=== PATIENT | female | born 1990 | race Caucasian/White ===

== ENCOUNTER 2022-06-20 14:43 | Emergency (ER) | payer MEDICAID, SELFPAY ==
[2022-06-20 14:53] VITALS: BP 128/82; PULSE 85; RESP 18; TEMP 37; O2SAT 99; BMI 43.4
--- NOTE | 2022-06-20 15:02 | ED_ITS ---
HPI - General Time Seen by Provider: 15:02 Date Seen: 06/20/22 Chief complaint: Vaginal Bleeding Stated complaint: 9 week , bleeding Time Seen by Provider: 06/20/22 14:55 Source: patient and RN notes reviewed Mode of arrival: ambulatory Limitations: no limitations History of Present Illness HPI Narrative: Patient is a 32-year-old female that is reportedly about 9 weeks coming in with spotting. She had some dark brown spotting in April. She does not have an ultrasound yet, is scheduled for July 01. She had 2 prior pregnancies, children are ages 15 and 11. She is last 3 days been having increasing spotting sometimes some clotting. She is still having nausea, still having breast tenderness. No cramping. She does feel when her bladder gets full a little left abdominal discomfort possibly but no baseline abdominal pain. She has a little irritated externally from wiping. She is seen by [facility] provider. MD Complaint: vaginal bleeding Vaginal bleeding: light and clots Patient : Yes Related Data : 3 Para: 2 Allergies Allergy/AdvReac Type Severity Reaction Status Date / Time No Known Drug Allergies Allergy Verified 06/20/22 14:52 Review of Systems Status of ROS: Reports: 6 or more systems reviewed and unremarkable except as noted in History and below PFSH PFSH Social History Smoking Status: Never smoker Do you use any of these nicotine containing products: None Second hand tobacco smoke exposure: No How often do you have a drink containing alcohol: never How often do you have six or more drinks on one occasion: Never AUDIT-C Alcohol total score: 0 Non-prescribed substance use: denies use service: No Exam Const: Vital Signs, click to edit/add: Vital Signs - 24 hr 06/20/22 14:53 Temperature 98.6 F Pulse Rate [Pulse Oximeter] 85 Respiratory Rate 18 Blood Pressure [Le ft Upper Arm] 128/82 Pulse Oximetry 99 Oxygen Delivery Me thod Room Air Documenting provider has reviewed patient's vital signs: yes Common normals: no apparent distress, oriented x3, no limitations, healthy appearing, alert and well nourished General appearance: cooperative, comfortable, well kempt and well developed HENMT: Common normals: normocephalic, head/scalp atraumatic and hearing grossly normal bilaterally Head and scalp: normocephalic and atraumatic Eye: Common normals: PERRL, EOMs intact bilaterally, conjunctivae normal and no scleral icterus Conjunctiva: conjunctiva(e) normal Pupil: PERRL Resp: Common normals: normal respiratory effort, no retractions, no use of accessory muscles and clear to auscultation bilaterally Auscultation: clear to auscultation bilaterally Cardio: Common normals: regular rate, regular rhythm, S1 normal heart sound, S2 normal heart sound, no gallops, no clicks and no murmurs Rate: regular rate Rhythm: regular rhythm Heart sounds: S1 normal and S2 normal GI: Common normals: Normal to inspection, nondistended, normoactive bowel sounds present, soft to palpation, non-tender and no hepatosplenomegaly Palpation: soft and no hepatosplenomegaly Neuro: Common normals: oriented x3 Sensorium/orientation: alert Psych: Appearance: well kempt Course Course Hospital Course: Will obtain pelvic ultrasound to establish anatomy, whether this is an IUP, could be subchorionic hemorrhage, possible miscarriage. Doubtful with her symptoms that this is ectopic . She was able to pull up her clinic records and I can see that she is A positive, negative antibody screen. We will obtain CBC, urinalysis, quantitative hCG. Reevaluation(s) Reevaluation #1: Have reviewed the low hCG level at 25.9, ultrasound not showing any . Reviewed with patient that this is indicative of miscarriage unfortunately. We did discuss how important it is to follow the hCG level though, ensure that it is resolving. I have asked that she follow up in clinic next week. Time: 16:53 Vital Signs Vital signs: Initial Vital Signs Temperature 98.6 F 06/20/22 14:53 Temperature Source Temporal Artery Scan 06/20/22 14:53 Pulse Rate 85 06/20/22 14:53 Pulse Rhythm Regular 06/20/22 14:53 Respiratory Rate 18 06/20/22 14:53 Blood Pressure 128/82 06/20/22 14:53 Blood Pressure Mean 97 06/20/22 14:53 Blood Pressure Position Supine 06/20/22 14:53 Pulse Oximetry 99 06/20/22 14:53 Oxygen Delivery Method Room Air 06/20/22 14:53 Vital Signs Temperature 98.6 F 06/20/22 14:53 Pulse Rate 85 06/20/22 14:53 Respiratory Rate 18 06/20/22 14:53 Blood Pressure 128/82 06/20/22 14:53 Pulse Oximetry 99 06/20/22 14:53 Oxygen Delivery Method Room Air 06/20/22 14:53 Temperature 98.6 F 06/20/22 14:53 Pulse Rate 85 06/20/22 14:53 Respiratory Rate 18 06/20/22 14:53 Blood Pressure 128/82 06/20/22 14:53 Pulse Oximetry 99 06/20/22 14:53 Oxygen Delivery Method Room Air 06/20/22 14:53 MDM - OB/Uterine Contractions Lab Data Attestation: I reviewed the patient's lab results. Labs: Lab Results 06/20/22 06/20/22 Range/Units 15:22 16:11 WBC 7.76 (4.50-11.00) K/uL RBC 5.18 (4.00-5.20) m/uL Hgb 14.1 (12.0-16.0) gm/dL Hct 43.0 (33.0-51.0) % MCV 83 (80-100) fL MCH 27 (26-34) pg MCHC 33 (32-36) gm/dL RDW Coeff of Heavenly 11.9 (11.5-15.5) % Plt Count 240 (140-440) K/uL Neut % (Auto) 66.8 (42.0-72.0) % Lymph % (Auto) 25.3 (20-44) % [place] % (Auto) 6.2 (0.0-11.0) % Eos % (Auto) 1.5 (0.0-7.0) % Baso % (Auto) 0.1 (0.0-3.0) % Neut # (Auto) 5.18 (1.7-7.0) K/uL Lymph # (Auto) 1.96 (0.90-2.90) K/uL [place] # (Auto) 0.50 (0.00-0.90) K/UL Eos # (Auto) 0.12 (0.00-0.50) K/uL Baso # (Auto) 0.01 (0.00-0.30) K/uL HCG, Quant 25.90 mIU/mL Urine Color Yellow (Yellow) Urine Appearance Clear (Clear) Urine pH 5.5 (5.0-8.5) Ur Specific [place] 1.010 (1.000-1.030) Urine Protein Negative (Negative) Urine Glucose (UA) Negative (Negative) Urine Ketones Negative (Negative) Urine Blood 2+ A (Negative) Urine Nitrite Negative (Negative) Urine Bilirubin Negative (Negative) Urine Urobilinogen 0.2 (0.2-1.0) Ur Leukocyte Esterase Negative (Negative) Urine RBC 0-2 (0-2) Urine WBC 0-2 (0-5) Ur Squamous Epith Cells None (None-Few) Urine Bacteria None (None) Imaging Data Ultrasound OB limited: Attestation: I have reviewed the pertinent imaging results. Radiologist's impression: Patient: CRAIG GUTIERREZ Facility:?[facility] Patient ID:?[id number] Site Patient ID:?[id number] Site :?[id number] Study:?US OB Pelvis -06/20/2022 4:12:46 PM Ordering Physician:?Lea Olivier Final Report: INDICATION: Spotting No comparison TECHNIQUE: Real-time gonzales-scale imaging of the pelvis was performed. FINDINGS: Endometrium measures 5 millimeters and appears thin. In the lower uterine segment there is a rounded hypoechoic area measuring 0.9 x 0.3 x 0.5 centimeters. Left ovary is normal measuring 1.7 x 2.5 x 1.7 cm normal blood flow to left ovary. Right ovary measures 1.7 x 2.7 x 1.5 centimeters probable corpus luteum cyst in right ovary. Measuring 1.1 x 1.9 centimeters. There is no adnexal mass or free fluid seen. IMPRESSION: 5 millimeter endometrial stripe. Lower uterine segment demonstrates a rounded hypoechoic area nonspecific measuring 0.9 x 0.3 x 0.5 centimeters. This could be a area of fluid/blood products. Gestational sac not excluded. A yolk sac, pole is not seen within this collection. Recommend close interval follow-up and correlation with HCG levels. Both ovaries are identified ,probable right ovarian corpus luteum cyst. No adnexal mass. No free fluid. Dictated by Tiffany Burton MD @ 06/20/2022 4:40:13 PM (Electronic Signature) Critical Care Time Critical Care Time Critical Care Time: No Discharge Plan Discharge Clinical Impression: Miscarriage Patient Disposition: Home, Self-Care Condition: Stable Instructions: Miscarriage (ED) Additional Instructions: The hormone hCG level was very low at 25.9. This needs to be rechecked next week in clinic. You will likely continue to have some spotting and bleeding, could be even increase to be more like a heavy menstrual flow. If bleeding is significant to the point making you symptomatic like dizziness/lightheadedness, increased heart rate, etc., need to be re-evaluated. Please make your clinic appointment for next week otherwise. Activity Level: Activity as Tolerated Discharge Diet: Regular Follow Up/Referrals: Harry Ang MD [Primary Care Provider] - Stand Alone Forms: Time Warden Info Instructions
--- NOTE | 2022-06-20 15:08 | CRLHL7_ITS ---
For Patients: As a result of the Century Cures Act, medical imaging exams and procedure reports are released immediately into your electronic medical record. You may view this report before your referring provider. If you have questions, please contact your health care provider. INDICATION: Spotting No comparison TECHNIQUE: Real-time gonzales-scale imaging of the pelvis was performed. FINDINGS: Endometrium measures 5 millimeters and appears thin. In the lower uterine segment there is a rounded hypoechoic area measuring 0.9 x 0.3 x 0.5 centimeters. Left ovary is normal measuring 1.7 x 2.5 x 1.7 cm normal blood flow to left ovary. Right ovary measures 1.7 x 2.7 x 1.5 centimeters probable corpus luteum cyst in right ovary. Measuring 1.1 x 1.9 centimeters. There is no adnexal mass or free fluid seen. IMPRESSION: 5 millimeter endometrial stripe. Lower uterine segment demonstrates a rounded hypoechoic area nonspecific measuring 0.9 x 0.3 x 0.5 centimeters. This could be a area of fluid/blood products. Gestational sac not excluded. A yolk sac, pole is not seen within this collection. Recommend close interval follow-up and correlation with HCG levels. Both ovaries are identified ,probable right ovarian corpus luteum cyst. No adnexal mass. No free fluid. Dictated by Tiffany Burton MD @ 06/20/2022 4:40:13 PM (Electronically Signed)
[2022-06-20 15:45] LABS: Appearance Urine Clear (Clear); Bilirubin Urine Negative (Negative); Blood Urine 2+ (Negative); Color Urine Yellow (Yellow); Glucose Urine Negative (Negative); Ketones Urine Negative (Negative); Leukocyte Esterase Urine Negative (Negative); Nitrite Urine Negative (Negative); Protein Urine Negative (Negative); Urobilinogen Urine 0.2 (0.2-1.0); pH Urine 5.5 (5.0-8.5)
[2022-06-20 16:06] LABS: RBC Urine 0-2 (0-2); WBC Urine 0-2 (0-5)
[2022-06-20 16:16] LABS: Basophils Absolute Auto 0.01 K/uL (0.00-0.30); Basophils Percent Auto 0.1 % (0.0-3.0); Eosinophils Absolute Auto 0.12 K/uL (0.00-0.50); Eosinophils Percent Auto 1.5 % (0.0-7.0); Hemoglobin* 14.1 gm/dL (12.0-16.0); Immature Granulocytes Abs Auto 0.01 K/uL (0.00-0.30); Immature Granulocytes Pct Auto 0.1 %; Lymphocytes Absolute Auto 1.96 K/uL (0.90-2.90); Lymphocytes Percent Auto 25.3 % (20-44); Mean Corpuscular HGB Conc 33 gm/dL (32-36); Mean Corpuscular Hemoglobin 27 pg (26-34); Mean Corpuscular Volume 83 fL (80-100); Monocytes Percent Auto 6.2 % (0.0-11.0); Neutrophils Absolute Auto 5.18 K/uL (1.7-7.0); Neutrophils Percent Auto 66.8 % (42.0-72.0); Platelet Count* 240 K/uL (140-440); RDW Coefficient of Variation % 11.9 % (11.5-15.5); Red Blood Count 5.18 m/uL (4.00-5.20); White Blood Count* 7.76 K/uL (4.50-11.00)
[2022-06-20 16:21] LABS: Slide Review Reflex No
== END 2022-06-20 17:08 | disposition home or self-care (01) ==
PROVIDERS: Emergency Provider Family Medicine; PCP Family Medicine
DX: O03.9 Complete or unspecified spontaneous abortion without complication (principal)
CPT/HCPCS: 36415; 76815; 76817; 81001; 84702; 85025; 99283; 99284

== ENCOUNTER 2023-06-30 05:08 | Inpatient (IN) | payer MEDICAID, SELFPAY ==
[2023-06-30] VITALS (32 sets, daily range): BP systolic 98–130; BP diastolic 57–78; PULSE 76–107; RESP 16–18; TEMP 36.6–36.9; O2SAT 94–98; BMI 51.9
--- OUTSIDE RECORDS SUMMARY | 2023-06-30 05:11 | XMS_ITS | Clinical Summary ---
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 Active albuterol (PROVENTIL) 0.083 % neb solutionIndication s:Asthma, unspecified asthma severity, unspecified whether complicated, unspecified whether persistent Inhale 3 mL (2.5 mg) via a nebulizer every 4 hours if needed for Wheezing. 75 mL 5 11/27/2022 Active fluticasone (50 mcg per actuation) nasal solution (FLONASE)Indicatio ns:Environmental allergies Inhale 2 Sprays to both nostrils once daily. 16 g 11 11/27/2022 Active aspirin (ECOTRIN) 81 mg enteric coated tabletIndications: Obesity affecting in first trimester, unspecified obesity type Take 1 Tablet (81 mg) by mouth once daily with a meal. 0 12/25/2022 Active Breast Pump PurchaseIndication s:Care and examination of lactating mother Electric breast pump for home use. Gestational age at delivery: 39 weeks. Reason for need: return to work. Length of need: 99 months (lifetime use) 1 Each 03/18/2023 Active polydextrose 1.5 gram chew Chew by mouth. Active Abdominal BinderIndications: care and examination band For home use. 1 Each 05/03/2023 Active Graduated Compression StockingsIndicatio ns:Swelling of lower extremity during in third trimester For personal use. Length: calf Strength: 20-30 mmHg 2 Packet 05/13/2023 Active albuterol HFA (Ventolin HFA) 90 mcg/actuation inhalerIndications :Mild intermittent asthma without complication Inhale 2 Puffs by mouth every 4 hours if needed for Shortness Of Breath. 36 g 5 06/09/2023 Active albuterol HFA (Ventolin HFA) 90 mcg/actuation inhalerIndications :Mild intermittent asthma without complication Inhale 2 Puffs by mouth every 4 hours if needed for Shortness Of Breath. 18 g 04/29/2023 4 Discontinue d(Reorder (E-cancel not sent)) Active Problems Problem Noted Date Diagnosed Date Advanced maternal age in multigravida, second tr imester 02/25/2023 Maternal morbid obesity in second trimester, ant epartum 02/25/2023 MPP, Supervision of high-risk 01/26/20 Overview: Maru Demetris Escalante : 1990 [facility] ULTRASOUND/TESTING PATIENT [facility] CONSULT ON Support person name: [place]: No ULTRASOUND TYPE: L2 REASON FOR VISIT: AMA at delivery, BMI NEXT VISIT ALERTS: Final BRITT by Early Ultrasound LMP Date: Patient's last menstrual period was 10/08/2022. BRITT: 07/15/23 Early US: Date: 12/09/22 GA: 10w11d BRITT: 07/06/23 PrePregnancy Weight: 240 Height: 5ft 6.5in BMI: 38 PLANS & FUTURE APPOINTMENTS: ULTRASOUND/GROWTH PLAN: - Through: - Growth: Next TESTING PLAN: - Testing: Through DELIVERY PLAN: - Scheduled delivery: - Preferred delivery location: PRIMARY DIAGNOSIS: 32 y.o. Estimated Date of Delivery: 07/06/23 MATERNAL History of C/S x 2 (2007, 2011) AMA (35 at delivery) BMI 38 Hx hypothyroid PREVIOUS ULTRASOUNDS: 12/09/22 10w1d BRITT 07/06/2023. (PCP) ECHO: REFERRING PHYSICIAN/PHONE/LAST UPDATE: Courtney Starr MD, [facility] MD approves scheduling of recommended ultrasounds/testing: Yes SPECIALISTS/CONSULTS: Include: Specialty MD Clinic Name Phone# [place] and ADDED TO PATIENT CARE TEAM GENETICS: Declines/Not Done CARE COORDINATION: PERTINENT LABS: Labs reviewed? Yes Normal? Yes Blood type: A Rh Positive Antibody screen: Negative Non-[facility] labs need to be entered in EPIC? No 11/27/22 TSH 2.84 PERTINENT MEDS: bASA PROCEDURES: IF FGR <10% or EFW <2000 grams: Add FGRPCOM PLAN OF CARE: Original and updated POC #4 12/15/2022 Overview: Estimated Date of Delivery: 07/06/2023 based on 10w US - not consistent with LMP Patient's last menstrual period was 10/08/2022. GBS- Vaginal/Rectal OB Strep B PCR Date Value Ref Range Status 06/09/2023 Negative Final 28wk labs: GLUC TONIA,FAST (GEST) Date Value Ref Range Status 03/31/2023 87 65 - 95 mg/dL Final GLUC TONIA,1HR (GEST) Date Value Ref Range Status 03/31/2023 138 65 - 180 mg/dL Final GLUC TONIA,2HR (GEST) Date Value Ref Range Status 03/31/2023 102 65 - 155 mg/dL Final GLUC TONIA,3HR (GEST) Date Value Ref Range Status 03/31/2023 94 65 - 140 mg/dL Final Last Tdap- 04/15/23 Last Flu vaccine- 11/27/22 OB Labs: ABORH Date Value Ref Range Status 11/27/2022 A Rh Positive Final ANTIBODY SCREEN Date Value Ref Range Status 11/27/2022 Negative Negative Final HEMOGLOBIN Date Value Ref Range Status 11/27/2022 12.6 12.0 - 16.0 g/dL Final PLATELET COUNT Date Value Ref Range Status 11/27/2022 215 140 - 440 thou/cu mm Final TREPONEMA PALLIDUM Date Value Ref Range Status 11/27/2022 Non-Reactive Non-Reactive Final RUBELLA IGG ANTIBODY Date Value Ref Range Status 11/27/2022 9.97 >=1.00 Index Final INTERPRETATION Date Value Ref Range Status 11/27/2022 Positive Final Comment: Presence of detectable IgG antibodies. A positive result generally indicates exposure to the virus or previous vaccination, but is not an indication of active infection or stage of disease. HBSAG Date Value Ref Range Status 11/27/2022 Nonreactive Nonreactive Final Hep B Surf Ag Scr Date Value Ref Range Status 06/12/2022 Negative Negative Final HCV Ab Date Value Ref Range Status 06/12/2022 Non Reactive Non Reactive Final HCV Neg Interp Date Value Ref Range Status 06/12/2022 Comment Final Comment: Not infected with HCV unless early or acute infection is suspected (which may be delayed in an immunocompromised individual), or other evidence exists to indicate HCV infection. CHLAMYDIA PROBE Date Value Ref Range Status 11/27/2022 Negative Final N GONORRHOEAE PROBE Date Value Ref Range Status 11/27/2022 Negative Final HIV-1/HIV-2 SCREEN Date Value Ref Range Status 11/27/2022 Nonreactive Nonreactive Final No Known Allergies OB History Para Term AB Living 4 2 2 0 1 2 SAB IAB Ectopic Multiple Live Births 1 0 0 0 2 # Outcome Date GA Lbr Gibran/2nd Weight Sex Delivery Anes PTL Lv 4 Current 3 SAB 06/13/22 F SPONTANEOUS Comments: System Generated. Please review and update details. 2 Term 04/28/11 37w0d F JOSE Name: Aleisha Iraheta Term 05/18/07 40w3d 10:00 3.03 kg (6 lb 11 oz) M JOSE Comments: emergency Name: Tommy Past Medical History: . Date Allergic rhinitis, cause unspecified 05/04/2006 animal dander pollens, dust & mold CTS (carpal tunnel syndrome) Depression Hypothyroidism 04/22/2010 Other acne 05/04/2006 Unspecified asthma(493.90) 05/04/2006 Unspecified sinusitis (chronic) Varicella In childhood Varicose vein Vitamin D deficiency 04/22/2010 Past Surgical History: . Laterality Date ARTHROSCOPY Right 2005 Torn meniscus SECTION 2007 2011 CO UNLISTED PROCEDURE ACCESSORY SINUSES 2003 2009 TONSILLECTOMY 05/27/12 TYMPANOSTOMY #4 Problems (from 11/26/22 to present) No problems associated with this episode. Gisela Carty RN ....12/15/2022 2:22 PM Pap smear for cervical cancer screening 07/31/19 Overview: 05/2022 NIL/HPV negative. Plan: Pap/HPV due 05/2027 Vitamin D deficiency 04/22/2010 Hypothyroidism 04/22/2010 Allergic rhinitis, cause unspecified 05/04/2006 Overview: animal dander pollens, dust & mold Unspecified asthma(493.90) 05/04/2006 Other acne 05/04/2006 Estimated Date of Delivery Comme nts Yes 07/06/2023 Based on Ultraso und Resolved Problems Problem Noted Date Diagnosed Date Resolved Date #3 06/12/2022 12/15/2022 Overview: SAB May 2022 OB History Para Term AB Living 3 2 2 0 0 2 SAB IAB Ectopic Multiple Live Births 0 0 0 0 2 # Outcome Date GA Lbr Gibran/2nd Weight Sex Delivery Anes PTL Lv 3 Current 2 Term 04/28/11 F JOSE Comments: System Generated. Please review and update details. 1 Term 05/13/07 40w3d 10:00 3.03 kg (6 lb 11 oz) M JOSE Comments: emergency Name: Tommy Past Medical History: . Date Allergic rhinitis, cause unspecified 05/04/2006 animal dander pollens, dust & mold CTS (carpal tunnel syndrome) Depression Hypothyroidism 04/22/2010 Other acne 05/04/2006 Unspecified asthma(493.90) 05/04/2006 Unspecified sinusitis (chronic) Varicella In childhood Varicose vein Vitamin D deficiency 04/22/2010 Past Surgical History: . Laterality Date ARTHROSCOPY Right 2005 Torn meniscus SECTION 2007 2011 CO UNLISTED PROCEDURE ACCESSORY SINUSES 2003 2009 TONSILLECTOMY 05/27/12 TYMPANOSTOMY No data on file. Problems (from 06/12/22 to present) No problems associated with this episode. Gisela Carty RN ....06/12/2022 3:41 PM History of section 01/19/2011 05/10/2013 Supervision of other normal 11/21/2010 05/10/2013 Morning sickness 10/24/2010 05/10/2013 Unspecified sinusitis (chronic) 05/10/2013 Encounters Date Type Department Care Team Description 06/23/2023 9:15 AM CDT OB Encounter [facility] [address] [place] [address] Courtney Starr MD Care (38w 1d) 06/23/2023 Travel 06/16/2023 8:50 AM CDT OB Encounter [facility] [address] [place] [address] Courtney Starr MD Care (37w 1d/Increased pelvic pain and pressure along with jayjay crockett) 06/16/2023 Travel 06/09/2023 11:20 AM CDT OB Encounter [facility] [address] [facility] [address] Courtney Starr MD Care (36w 1d/) 06/09/2023 Refill [facility] [address] [place] [address] Courtney Starr MD Refill Request (Ventolin Hfa) 06/08/2023 10:30 AM CDT Ancillary Procedure [facility] [place] [address] 06/08/2023 Travel 06/02/2023 9:15 AM CDT OB Encounter [facility] [place] [address] Courtney Starr MD Care (35w 1d/Feet have been swelling pretty bad and hard time putting shoes. Increased Jayjay crockett and increased pressure and back pain.) 06/02/2023 Travel 05/13/2023 8:25 AM CDT OB Encounter [facility] [place] [address] Courtney Starr MD Care (32w 2d/Feeling a lot more pelvic pain after a day at work. Pain sometimes makes her feel nauseated.) 05/13/2023 Travel 04/30/2023 11:20 AM PASSENGER SERVICE AGENT OB Encounter [facility] [address] [place] [address] Courtney Starr MD Care (30wk 3d/) 04/30/2023 Travel 04/28/2023 Refill [facility] [address] [place] [address] Courtney Starr MD Refill Request 04/15/2023 8:25 AM PASSENGER SERVICE AGENT OB Encounter [facility] [address] [place] [address] Courtney Starr MD Care (28w 2d) 04/15/2023 Travel from Last 3 Months Immunizations Name Administration Dates Next Due AMB Influenza, IIV3 (Age >=3 years) Preserve Free (Flu Clinic Only) 12/06/2012 AMB Influenza, IIV3 (Age >=3 years)(Flu Clinic Only) 11/30/2011,12/15/2010,12/23/2007 AMB Influenza, IIV4 PF (=>6 mos Flulaval,Fluzone Fluarix)(Flu Clinic Only) 11/29/2018,12/14/2015,12/13/2013 COVID-19 Vaccine Spikevax (M oderna 50mcg/0.5mL) 12YO+ [id number] Formula PF 01/20/2023 DTaP 05/09/1993, 2,1988,1988,1988 HIB HbOC (HibTITER) 04/06/1991 Hepatitis B (Peds) 01/01/2000,08/01/1999, 000 Human Papilloma Virus Vaccine 06/29/2007, 007,05/05/2006 11/07/2006 Influenza, IIV3 (Age 6-35 mos) 12/06/2012,2010 Influenza, IIV3 (Age >=3 years) 11/30/19 12,11/27/2009,12/23/2007,2006,12/10/2005,12/16/2004,12/21/2003,1 04/17/2002 Influenza, IIV4 11/27/2022, 2,12/16/2020,2017,11/17/2016,12/14/2015,12/14/2014,1 Influenza, IIV4 (=>6mos) MDV 12/21/2019 MMR 07/01/1999,05/09/1993 Oral Polio Vaccine 05/09/1993, 2,1988,1988 Td (Age >=7 Years) 07/01/1999 Tdap 04/15/2023,12/03/2021,09/10/2009 Family History Medical History Relation Name Comments Other Brother 2 gallblader dise ase Diabetes Brother 3 Psychiatric illness Brother 4 Depressi on Asthma Daughter Diabetes Father Heart failure Father Hyperlipidemia Father Hypertension Father Hyperlipidemia Mother Hypertension Mother Psychiatric illness Mother Depressi on Asthma Sister 2 Psychiatric illness Sister 3 Depressi on Asthma Son Relation Name Status Comments Brother 1 Alive Brother 2 Brother 3 Brother 4 Daughter Father Alive Mother Alive Sister 1 Alive Sister 2 Sister 3 Son Social History Tobacco Use Types Packs/Day Years Used Date Smoking Tobacco: Never Smokeless Tobacco: Never Tobacco Cessation:Counseling Given: Yes Alcohol Use Standard Drinks/Week Comments No 0 (1 standard drink = 0.6 oz pur e alcohol) PHQ-2 Answer Date Recorded PHQ-2 TOTAL SCORE 2 06/25/2022 Social Connections Answer Date Recorded Frequency of Communication with Friends and Fami ly Not on file 07/09/2022 Financial Resource Strain Answer Date R ecorded Difficulty of Paying Living Expenses 3 07/08/2021 Difficulty of Paying Living Expenses Not on file 07/08/2021 Food Insecurity Answer Date Recorded Worried About Running Out of Food in the Last Ye ar 1 07/08/2021 Transportation Needs Answer Date Record ed Lack of Transportation (Medical) 1 07/08/2021 Housing Stability Answer Date Recorded Unable to Pay for Housing in the Last Year 1 07/08/2021 Estimated Date of Delivery Comme nts Yes 07/06/2023 Based on Ultraso und Sex and Gender Information Value Date Recorded Sex Assigned at Not on file Gender Identity Not on file Sexual Orientation Not on file Obstetrics History Para Term AB IAB SAB Ectopic Multiple Livin g Live Births 4 2 2 0 1 0 1 0 0 2 2 Date Outcome GA Total Labor Labor/2nd/3rd Weight Sex Delivery Anes PTL Jose A1 A5 Name Cl in 05/17 Term 40w 3d 10h 00m/ 3.03 kg (6 lb 11 oz) M Bindu ng Vaishali n Melan ie [facility] Delivery Location:[facility] Comments:emergency c- section 04/28 Term 37w 0d F Bindu ng Erendira a 06/13 SAB F SPONTANEO US Comments:System Genera lobito. Please review and update details. Current Summary Episode Dates Number of Fetuses Estimated Date of Delivery 11/26/2022 - Present (06/30/2023) 07/06/2023 (set by Gisela Carty RN on 12/24/2022 based on Ultrasound on 12/09/2022) Dating Summary Based On BRITT GA Diff Last Menstrual Period on 10/08/2022 07/15/2023 -1w2d Ultrasound on 12/09/2022 07/06/2023 Working GA:10w1d Vitals Pregravid Weight Height TWG (As of 06/30/2023) Pregrav id BMI 1.69 m (5' 6.54) Date GA Fund Present FHR Mvmt BP Weight Edema Alb Glu Ket Dil/ Eff/Sta 3 21w2d Inpatient data not displayed here. See encounter summary. Notes Progress Notes - OB Encounte r - 06/23/2023 - GA:38w1d 06/23/2023 - 38w1d - Courtney Starr MD SUBJECTIVE: Maru Escalante is a 33 y.o. female at 38+1 weeks. No concerns. Still having pelvic pain, but not as bad. Continues to have swelling in lower extremities, but again better since she is not working. Baby is active. Some BH contractions especially when baby is active in the evenings. See visit comments. OBJECTIVE: see OB vitals flow sheet ASSESSMENT : 38+1 weeks gestation AMA Maternal obesity Planned repeat PLAN: Labor signs and symptoms reviewed with patient including painful regular contractions or leaking fluid. Otherwise will plan to present for her next week. Courtney Starr MD .................... 06/23/2023 9:28 AM Progress Notes - OB Encounte r - 06/16/2023 - GA:37w1d 06/16/2023 - 37w1d - Courtney Starr MD SUBJECTIVE: Maru Escalante is a 33 y.o. female at 37+1 weeks. Having more BH contractions and pelvic pain/pressure. Having to take more breaks at work. See visit comments. OBJECTIVE: see OB vitals flow sheet ASSESSMENT : 37+1 weeks gestation AMA Maternal obesity PLAN: Labor signs and symptoms reviewed with patient including painful regular contractions or leaking fluid. RTC 1 weeks. Courtney Starr MD .................... 06/16/2023 9:12 AM Progress Notes - OB Encounte r - 06/09/2023 - GA:36w1d 06/09/2023 - 36w1d - Angie Taylor mj 06/09/2023 - 36w1d - Michelle Fuentes Faxed to [facility]. Michelle Fuentes .................... 06/10/2023 8:27 AM 06/09/2023 - 36w1d - Courtney Starr MD Images from the original note were not included. [facility] Preoperative Consultation Maru Escalante : 1990 Gender: female Date of Encounter: 06/09/2023 Nursing Notes: Deepa Robledo 06/09/2023 11:28 AM Sign at exiting of workspace Chief Complaint Patient presents with Care 36w 1d Additional visit information (chief complaint/health maintenance) shared by patient: Health Maintenance Due Topic Date Due Pneumococcal series for age 6-64 (1 of 2 - PCV) Never done Depression screening for age 12+ 06/26/2023 Health maintenance reviewed with patient Yes Patient presents for an in-person office visit: alone Communication Method: Patient is active on [employer] and has been instructed that results/communications will be made via [employer] If a phone call is needed, the preferred number is: Mobile May we leave a detailed message at this number? Yes Is patient in need of refills in the next 3 months? No BP 128/74 (Cuff Site: Right Arm, Position: Sitting, Cuff Size: Adult Large) Pulse 93 Wt 132.5 kg (292 lb 3.2 oz) LMP 10/08/2022 SpO2 98% BMI 46.41 kg/m?? Deepa Montoya, [facility] 06/09/2023 11:28 AM History of Present Illness Maru Escalante is a 33 y.o. at 36+1 week here for routine OB visit as well as preop for planned repeat on 06/30/2023. She has continued swelling in lower extremities, right a little worse than left. No redness or pain. Swelling is better in AM, worse as the day goes on. She is using her albuterol regularly, about every 4 hours when she is working since she is up walking. On days she doesn't work, she doesn't use it at all. Review of Systems A comprehensive review of systems was negative except for items noted in HPI. Patient Active Problem List Diagnosis Code Allergic rhinitis, cause unspecified J30.9 Unspecified asthma(493.90) J45.909 Other acne L70.8 Vitamin D deficiency E55.9 Hypothyroidism E03.9 Pap smear for cervical cancer screening Z12.4 #4 Z34.90 [facility], Supervision of high-risk O09.90 Advanced maternal age in multigravida, second trimester O09.522 Maternal morbid obesity in second trimester, antepartum (HC) O99.212, E66.01 Current Outpatient Medications Medication Sig Abdominal Binder band For home use. albuterol (PROVENTIL) 0.083 % neb solution Inhale 3 mL (2.5 mg) via a nebulizer every 4 hours if needed for Wheezing. albuterol HFA (Ventolin HFA) 90 mcg/actuation inhaler Inhale 2 Puffs by mouth every 4 hours if needed for Shortness Of Breath. aspirin (ECOTRIN) 81 mg enteric coated tablet Take 1 Tablet (81 mg) by mouth once daily with a meal. Breast Pump Purchase Electric breast pump for home use. Gestational age at delivery: 39 weeks. Reason for need: return to work. Length of need: 99 months (lifetime use) fluticasone (50 mcg per actuation) nasal solution (FLONASE) Inhale 2 Sprays to both nostrils once daily. Graduated Compression Stockings For personal use. Length: calf Strength: 20-30 mmHg polydextrose 1.5 gram chew Chew by mouth. no115/iron/folic acid ( 19 ORAL) Take by mouth. No current facility-administered medications for this visit. Medications have been reviewed by me and are current to the best of my knowledge and ability. No Known Allergies Past Surgical History: . Laterality Date ARTHROSCOPY Right 2005 Torn meniscus SECTION 2007 2011 CO UNLISTED PROCEDURE ACCESSORY SINUSES 2003 2009 TONSILLECTOMY 05/27/12 TYMPANOSTOMY Social History Tobacco Use Smoking status: Never Smokeless tobacco: Never Vaping Use Vaping status: Never Used Substance Use Topics Alcohol use: No Drug use: No Family History Problem Relation Age of Onset Hypertension Mother Hyperlipidemia Mother Psychiatric illness Mother Depression Hypertension Father Hyperlipidemia Father Diabetes Father Heart failure Father Asthma Sister Psychiatric illness Sister Depression Other Brother gallblader disease Diabetes Brother Psychiatric illness Brother Depression Asthma Daughter Asthma Son PAST DIFFICULTY WITH ANESTHESIA: None Physical Exam BP 128/74 (Cuff Site: Right Arm, Position: Sitting, Cuff Size: Adult Large) Pulse 93 Wt 132.5 kg (292 lb 3.2 oz) LMP 10/08/2022 SpO2 98% BMI 46.41 kg/m?? Body mass index is 46.41 kg/m??. General Appearance: Pleasant, alert, appropriate appearance for age. No acute distress Eye Exam: Normal external eye, conjunctiva, lids, cornea. STEPHAN. OroPharynx Exam: Edentulate. Normal buccal mucosa. Normal pharynx. Neck Exam: Supple, no masses or nodes. Chest/Respiratory Exam: Normal chest wall and respirations. Clear to auscultation. Cardiovascular Exam: Regular rate and rhythm. S1, S2, no murmur, click, gallop, or rubs. Gastrointestinal Exam: Gravid, appropriate for GA. Neurologic Exam: Nonfocal; symmetric DTRs, normal gross motor movement, tone, and coordination. No tremor. Psychiatric Exam: Alert and oriented, appropriate affect. Assessment / Plan The Pre-Op Tool Recommendations Low Risk Procedure Cardiac History No history of coronary artery disease COVID-19 COVID-19 > 7 weeks ago, now asymptomatic: proceed with surgery as planned. Labs No routine labs indicated EKG Not indicated Stress Testing Not indicated * Testing recommendations are intended to assist, but not direct, clinical decisions. Take your other medications as usual prior to the procedure Hold vitamins and/or supplements for 1 week prior to the procedure Okay to take Acetaminophen (Tylenol) up until the procedure * Medication recommendations are not intended to be exhaustive; they are limited to common medications that are potentially dangerous if incorrectly managed Labs * Data supports elimination of ? routine? laboratory testing in favor of focused, ? indicated? testing based on medical co-morbidities. A 2009 study randomized 1061 patients undergoing ambulatory, non-cataract surgery to routine or to indicated testing. Perioperative adverse events were similar (Anesthesia & Analgesia 2009;108:467- 75; Anesthesiol. Clin. 2016 Mar;34(1):43-58). EKG * The ACC/AHA recommends against obtaining routine EKGs in patients undergoing low risk surgeries, a class IIa recommendation (JACC. 2014;64(21);e1-76). Antiplatelet Therapy * In the 2014 POISE-2 trial, continuation of aspirin in high cardiovascular risk patients undergoing non-cardiac surgery increased the risk for major bleeding without reducing the rate of , myocardial infarction, or stroke. In most circumstances our experts recommend a 7 day aspirin hold in patients without coronary stents. Continuation of aspirin may be reasonable in patients with high risk coronary artery disease or cerebrovascular disease who are not undergoing high bleeding risk procedures (NEJM 2014;370:1494-503; GERSON 2015; Clin Med 2016; 16: 535-40; Anest Analg 2020; 131: 111-23). Session ID: [id number] Endnotes and bibliography available upon request: [email or web address] Labs: GBS done today. ECG: no ICD-10-CM 1. Encounter for supervision of other normal in third trimester Z34.83 VAGINAL/RECTAL OB STREP PCR 2. Multigravida of advanced maternal age in third trimester O09.523 3. Obesity affecting in first trimester, unspecified obesity type O99.211 4. Preop examination Z01.818 Patient is cleared for planned procedure. Electronically Signed by: Courtney Starr MD 06/09/2023 Progress Notes - OB Encounte r - 06/02/2023 - GA:35w1d 06/02/2023 - 35w1d - Courtney Starr MD SUBJECTIVE: Maru Escalante is a 33 y.o. female at 35+1 weeks. Struggling more with swelling in the feet. She is wearing compression stockings, but those are only modestly helpful. They get better overnight or with elevation, but then worsen the longer she's on her feet. Having some BH contractions. See visit comments. OBJECTIVE: see OB vitals flow sheet ASSESSMENT : 35+1 weeks gestation Maternal obesity AMA PLAN: labor signs and symptoms reviewed with patient including pain, cramping, bleeding or leaking fluid. RTC 1 weeks with preop and GBS. Anesthesia consult placed. Courtney Starr MD .................... 06/02/2023 9:24 AM Progress Notes - OB Encounte r - 05/13/2023 - GA:32w2d 05/13/2023 - 32w2d - Courtney Starr MD SUBJECTIVE: Maru Escalante is a 33 y.o. female at 32+2 weeks. She is struggling with nasal congestion, is using saline nasal spray and flonase. She is also using a humidifier overnight. No concerns. See visit comments. OBJECTIVE: see OB vitals flow sheet ASSESSMENT : 32+2 weeks gestation AMA Maternal obesity Viral URI PLAN: labor signs and symptoms reviewed with patient including pain, cramping, bleeding or leaking fluid. If symptoms are not improving, worsening over the next week will reach out, could consider antibiotics for sinusitis. RTC 2 weeks. Courtney Starr MD .................... 05/13/2023 8:36 AM Progress Notes - OB Encounte r - 04/30/2023 - GA:30w3d 04/30/2023 - 303d - Courtney Starr MD SUBJECTIVE: Maru Escalante is a 33 y.o. female at 30+3 weeks. Has noted more swelling in the lower extremities. Had noticed this the day after she had been at her daughter's dance competition. If she rests and elevates the feet, that helps. See visit comments. OBJECTIVE: see OB vitals flow sheet ASSESSMENT : 30+3 weeks gestation AMA Obesity Repeat PLAN: labor signs and symptoms reviewed with patient including pain, cramping, bleeding or leaking fluid. prescription for compression stockings provided. RTC 2 weeks. Courtney Starr MD .................... 04/30/2023 11:29 AM ENGER SERVICE AGENT Progress Notes - OB Encounte r - 04/15/2023 - GA:28w2d 04/15/2023 - 28w2d - Courtney Starr MD SUBJECTIVE: Maru Escalante is a 32 y.o. female at 28+2 weeks. No concerns other than hip pain. This is relieved with rest. Needs work restriction forms completed. See visit comments. OBJECTIVE: see OB vitals flow sheet ASSESSMENT : 28+2 weeks gestation Obesity, growth ultrasound at 36 weeks. Repeat LTCS planned, schedule 06/30/23 PLAN: labor signs and symptoms reviewed with patient including pain, cramping, bleeding or leaking fluid. TDaP today. RTC 2 weeks. Courtney Starr MD .................... 04/15/2023 8:59 AM ENGER SERVICE AGENT Progress Notes - OB Encounte r - 03/18/2023 - GA:24w2d 03/18/2023 - - Courtney Starr MD SUBJECTIVE: Maru Escalante is a 32 y.o. female at 24+2 weeks. If she is on her feet for prolonged periods, she gets hip pain. It improves with sitting/rest. Work has been accommodating, but she needs a letter for HR. Also is looking into an abdominal support band. No concerns. See visit comments. OBJECTIVE: see OB vitals flow sheet ASSESSMENT : 24+2 weeks gestation AMA Maternal obesity. Abnormal 1 hour GCT PLAN: labor signs and symptoms reviewed with patient including pain, cramping, bleeding or leaking fluid. Consult for placed. 3 hour GTT Letter for work accommodations. RTC 4 weeks with TDaP. Courtney Starr MD .................... 03/18/2023 11:43 AM ENGER SERVICE AGENT Progress Notes - Hospital En counter - 02/25/2023 - GA:21w2d 02/25/2023 - - Colleen Salazar MD Referred By: COURTNEY STARR MD Indications Code 21 weeks gestation of Z3A.21 AMA - 35 at delivery BMI > 35 Hx x2 Hx hypothyroid +bASA Declined serum screening IMPRESSION: Intrauterine at 21w 2d. presentation is Cephalic. EFW 450 grams, percentile: 66. Growth parameters and estimated weight are appropriate for gestational age. No major structural anomalies identified. No markers for aneuploidy identified. Normal Deepest Vertical Pocket of amniotic fluid: 4.92 cm. Placental location: Posterior. There is no evidence of placenta previa. The transabdominal cervical length is 3.5 cm. RECOMMENDATIONS: - Return to primary provider for continued care. - No alterations in the delivery plan are necessary. - No medication changes are indicated. - Consider growth ultrasound in 3rd trimester for AMA and BMI (can be done locally) - No surveillance otherwise indicated COMMENT: Present findings are reassuring. The patient was seen by the Perinatologist today. The previous ultrasound and the records were reviewed. The results of today's ultrasound were communicated to the patient. New government regulations related to the Century Cures act require that this note be released to the patient immediately, sometimes before the referring provider has been contacted. A portion of the information was presented verbally to the patient. The remainder is submitted as background for the referring provider, to be discussed as needed. Services Provided: Procedures Code DETAIL ANATOMY 24820.0 ENGER SERVICE AGENT Progress Notes - OB Encounte r - 02/17/2023 - GA:20w1d 02/17/2023 - - Courtney Starr MD SUBJECTIVE: Maru Escalante is a 32 y.o. female at 20+1 weeks. Exposed to covid last week, daughter tested positive. Maru tested negative on 02/12, but she has had a sore throat, nasal congestion and runny nose since. She has not retested. No concerns. See visit comments. OBJECTIVE: see OB vitals flow sheet ASSESSMENT : 20+1 weeks gestation Maternal obesity AMA at the time of delivery. Repeat PLAN: labor signs and symptoms reviewed with patient including pain, cramping, bleeding or leaking fluid. Level 2 ultrasound and echo next week. Discussed testing again for covid, although she is now out of treatment window for paxlovid and she is already on ASA therapy. RTC 4 weeks with diabetes, syphilis and hemoglobin screening. Courtney Starr MD .................... 02/17/2023 9:57 AM ENGER SERVICE AGENT Progress Notes - OB Encounte r - 01/20/2023 - GA:16w1d 01/20/2023 - 16w1d - Courtney Starr MD SUBJECTIVE: Maru Escalante is a 32 y.o. female at 16+1 weeks. No concerns. See visit comments. OBJECTIVE: see OB vitals flow sheet ASSESSMENT : 16+1 weeks gestation Maternal obesity AMA PLAN: Warning signs and symptoms reviewed with patient including pain, cramping, bleeding or leaking fluid. Perinatology consult/level 2 ultrasound ordered given maternal obesity and AMA at time of delivery. Covid booster given today. RTC 4 weeks. Courtney Starr MD .................... 01/20/2023 1:21 PM ENGER SERVICE AGENT Progress Notes - OB Encounte r - 12/25/2022 - GA:12w3d 12/25/2022 - 12w3d - Courtney Starr MD SUBJECTIVE: Mrau Escalante is a 32 y.o. female at 12+3 weeks. Nausea is still present, but improving. Is staying hydrating, able to keep down most foods. Patient declines genetic testing. No concerns. See visit comments. OBJECTIVE: see OB vitals flow sheet ASSESSMENT : 12+3 weeks gestation AMA Maternal obesity PLAN: Warning signs and symptoms reviewed with patient including pain, cramping, bleeding or leaking fluid. Start 81 mg ASA RTC 4 weeks. Courtney Starr MD .................... 12/25/2022 2:35 PM Progress Notes - OB Encounte r - 11/27/2022 - GA:8w3d 11/27/2022 - 8w3d - Courtney Starr MD Images from the original note were not included. FIRST OB VISIT HPI: Maru Escalante is a 32 y.o. female at 7w1d with capellan intrauterine here today for a initial OB exam. Estimated due date is Estimated Date of Delivery: 07/15/23 based on LMP, although her last period was only light bleeding for a day. . Nausea/Vomiting: yes Breast tenderness: yes Fatigue: yes Bleeding: no Taking vitamins: yes Options of sequential screen, cell-free DNA testing, amniocentesis were discussed. Patient is not sure if she is interested in pursuing testing. She will discuss with her AMA: yes, will be at the time of delivery Previous : yes OB History Para Term AB Living 4 2 2 0 1 2 SAB IAB Ectopic Multiple Live Births 1 0 0 0 2 # Outcome Date GA Lbr Gibran/2nd Weight Sex Delivery Anes PTL Lv 4 Current 3 SAB 06/13/22 F SPONTANEOUS Comments: System Generated. Please review and update details. 2 Term 04/28/11 37w0d F JOSE 1 Term 05/18/07 40w3d 10:00 3.03 kg (6 lb 11 oz) M JOSE Comments: emergency Past Medical History: . Date Allergic rhinitis, cause unspecified 05/04/2006 animal dander pollens, dust & mold CTS (carpal tunnel syndrome) Depression Hypothyroidism 04/22/2010 Other acne 05/04/2006 Unspecified asthma(493.90) 05/04/2006 Unspecified sinusitis (chronic) Varicella In childhood Varicose vein Vitamin D deficiency 04/22/2010 Past Surgical History: . Laterality Date ARTHROSCOPY Right 2005 Torn meniscus SECTION 2007 2011 CO UNLISTED PROCEDURE ACCESSORY SINUSES 2003 2009 TONSILLECTOMY 05/27/12 TYMPANOSTOMY Family History Problem Relation Age of Onset Hypertension Mother Hyperlipidemia Mother Psychiatric illness Mother Depression Hypertension Father Hyperlipidemia Father Diabetes Father Heart failure Father Asthma Sister Psychiatric illness Sister Depression Other Brother gallblader disease Diabetes Brother Psychiatric illness Brother Depression Asthma Daughter Asthma Son Social History Tobacco Use Smoking status: Never Smokeless tobacco: Never Substance Use Topics Alcohol use: No Current Outpatient Medications Medication Sig albuterol (PROVENTIL) 0.083 % neb solution Inhale 3 mL (2.5 mg) via a nebulizer every 4 hours if needed for Wheezing. albuterol HFA (Ventolin HFA) 90 mcg/actuation inhaler Inhale 2 Puffs by mouth every 4 hours if needed for Shortness Of Breath or Wheezing. fluticasone (50 mcg per actuation) nasal solution (FLONASE) Inhale 2 Sprays to both nostrils once daily. no115/iron/folic acid ( 19 ORAL) Take by mouth. No current facility-administered medications for this visit. Medications have been reviewed by me and are current to the best of my knowledge and ability. ALLERGIES Patient has no known allergies. MENTAL HEALTH HISTORY History of psychiatric diagnosis: None Current mental health provider: not applicable Currently taking any psychiatric medications? Not Applicable INFECTION HISTORY Current Drug Use: none Relevant infection history from OB Questionnaire: none REVIEW OF SYSTEMS Comprehensive ROS complete and negative other than noted in HPI and on OB Questionnaire. PHYSICAL EXAM BP 104/71 (Cuff Site: Left Arm, Position: Sitting, Cuff Size: Adult Large) Pulse 96 Ht 1.69 m (5' 6.54) Wt 109.1 kg (240 lb 9.6 oz) LMP 10/08/2022 SpO2 100% BMI 38.21 kg/m?? General Appearance: Alert, appropriate appearance for age. No acute distress. HEENT Exam: Grossly normal. Neck/Thyroid Exam: Supple, no masses, nodes or enlargement. Lungs: Clear to auscultation bilaterally. Breast Exam: Not indicated. Cardiovascular Exam: Regular rate and rhythm. S1, S2, no murmur. Abd: Soft, non-tender, no masses or organomegaly. + FHTs seen on bedside ultrasound Skin: no rashes or lesions. Lymphatics: no nodes palpable. Psychiatric Exam: Alert and oriented x 3, appropriate affect. Pelvic Exam: deferred ASSESSMENT/PLAN 32 y.o. at 7w1d with capellan intrauterine . ICD-10-CM 1. Encounter for supervision of other normal in first trimester Z34.81 ANTI HIV 1/2 ABORH TYPE ANTIBODY SCREEN HBSAG (HBS) TREPONEMA PALLIDUM RUBELLA IMMUNE STATUS UA W/ SEDIMENT EXAM REFLEXED PER CRITERIA URINE CULTURE GC CHLAMYDIA TRACH PROBE CBC AND DIFFERENTIAL TSH WITH REFLEX US OB 1ST TRI SINGLE TA AND TV 2. Need for influenza vaccination Z23 FluLaval Single Dose Syringe - FLU VACCINE => 6 MOS PRESERV FREE QUADRIVALENT IIV4 IM [] 3. Mild intermittent asthma without complication J45.20 albuterol HFA (Ventolin HFA) 90 mcg/actuation inhaler 4. Asthma, unspecified asthma severity, unspecified whether complicated, unspecified whether persistent J45.909 albuterol (PROVENTIL) 0.083 % neb solution 5. Environmental allergies Z91.09 fluticasone (50 mcg per actuation) nasal solution (FLONASE) Satisfactory exam. Demonstrates appropriate and health-seeking behaviors toward her . Verbalizes good understanding of care schedule and the importance of coming to each visit as scheduled. Start/continue vitamins. Reviewed labs. She was encouraged to call the office with any questions or concerns. Discussed with 2 prior c-sections, she will had another with this . Could consider ASA at next visit as she has a couple risk factors (will be AMA at time of delivery, obesity) Body mass index is 38.21 kg/m??. Diet and expected weight gain discussed with patient. DEPRESSION SCREEN 06/25/2022 12:00 PM PHQ Depression Screening Date of PHQ exam (doc flow) 06/25/2022 1. Lack of interest/pleasure 1 - Several days 2. Feeling down/depressed 1 - Several days PHQ-2 TOTAL SCORE 2 3. Trouble sleeping 2 - More than half the days 4. Decreased energy 2 - More than half the days 5. Appetite change 1 - Several days 6. Feelings of failure 1 - Several days 7. Trouble concentrating 2 - More than half the days 8. Activity level 0 - Not at all 9. Hurting yourself 0 - Not at all PHQ-9 TOTAL SCORE 10 PHQ-9 Severity Level moderate Functional Impairment somewhat difficult Intervention: last PHQ done when just past miscarriage. Reports mood is now normal. Courtney Starr MD Last Filed Vital Signs Vital Sign Reading Time Taken Comments Blood Pressure 120/75 06/23/2023 9:18 AM CDT Pulse 81 06/23/2023 9:18 AM CDT Temperature 36.6 ??C (97.8 ??F) 02/17/2023 9:50 AM CS T Respiratory Rate 14 12/01/2020 12:18 PM CDT Oxygen Saturation 99% 06/23/2023 9:18 AM CDT Inhaled Oxygen Concentration - - Weight 132.9 kg (293 lb) 06/23/2023 9:18 AM CDT Height 169 cm (5' 6.54) 11/27/2022 4:00 PM CDT Body Mass Index 46.53 11/27/2022 4:00 PM CDT Plan of Treatment Health Maintenance Due Date Last Done Comments Pneumococcal series for age 6-64 (1 of 2 - PCV) 1994 Depression screening for age 12+ 06/26/2023 06/25/2022, 04/05/2019, 03/12/2018, Additional history exists Influenza for age 9-49 10/31/2023 , 12/31/2021, 12/16/2020, Additional history exists BMI (ht and wt on same day) for age 18+ 11/28/2023 11/27/2022, 06/12/2022, 12/03/2021, Additional history exists Pap test for age 21-65 06/26/2027 , 06/25/2022, 11/10/2017, Additional history exists Tetanus booster 04/15/2033 04/15/2023, 06/2021, 09/10/2009, Additional history exists Hepatitis C screening for ag e 18-79 Completed 06/12/2022 HIV for age 15-65 Completed 11/27/2022, , 09/30/2010, Additional history exists COVID-19 vaccine series Completed 01/21/20, 07/18/2020, 06/20/2020 Tdap Completed 04/15/2023, 06/2021, 09/10/2009 Procedures Procedure Name Priority Date/Time Associated Diagnosis Comments VAGINAL/RECTAL OB STREP PCR Routine 06/09/2023 11:45 AM CDT Encounter for supervision of other normal in third trimester US OB FOLLOW UP ANY TRI SINGLE TA Routine 06/08/2023 10:59 AM CDT Encounter for supervision of other normal in third trimester Obesity affecting in first trimester, unspecified obesity type ANTI HIV 1/2 Routine 11/27/2022 5:03 PM CDT Encounter for supervision of other normal in first trimester HPV THIN PREP Routine 06/25/2022 12:13 PM CDT Screening for cervical cancer LC HCV ANTIBODY RFX TO QUANT PCR Routine 06/12/2022 3:55 PM CDT Encounter for supervision of other normal in first trimester from Last 3 Months or Most Recently Relevant to Health Maintenance Results * VAGINAL/RECTAL OB STREP PCR (06/09/2023 11:45 AM CDT) Vaginal/Rectal OB Strep B PCR Negative 06/11/2023 8:51 AM CDT [facility] Other (Vaginal/Rectal) Non-Blood / Unknown 06/09/2023 11:45 AM CDT 06/09/2023 12:11 PM CDT Courtney Starr MD MICROBIOLOGY [facility] [address] [place] [address], * US OB FOLLOW UP ANY TRI SINGLE TA (06/08/2023 10:59 AM CDT) Anatomical Region Laterality Modality , 2or 3 TRIMESTER Ultrasound 06/08/2023 2:11 PM CDT Impressions 06/08/2023 2:11 PM CDT Sonographic gestational age 37 weeks 5 days and sonographic due date 06/24/2023. Sonographic age 12 days ahead of the clinical age. Estimated weight 87th percentile. Abdominal circumference 93rd percentile. Dictated by Vazquez Rabago MD @ 06/08/2023 2:11:44 PM (Electronically Signed) Narrative 06/08/2023 2:11 PM CDT For Patients: ??As a result of the Cures Act, medical imaging exams and procedure reports are released immediately into your electronic medical record. ??You may view this report before your referring provider. ??If you have questions, please contact your health care provider. INDICATION: Third trimester scan, evaluate growth. COMPARISON: 02/25/2023 TECHNIQUE: Real time gonzales scale imaging of the fetus was performed. FINDINGS: Sonographic imaging demonstrates a single living intrauterine gestation. ??Fetus demonstrates a regular cardiac rate of 139 beats per minute. ??Fetus has a vertex position. The placenta lies left fundal without evidence of placenta previa. ??Amniotic fluid volume appears normal and there is a single deepest vertical pocket: 5.6 cm. The estimated weight is 3215gm which lies at the 87th %. ??On the prior OB ultrasound exam dated 02/25/2023 the estimated weight was at the 71st%. The biometric indices all lie within normal range. ??The HC/AC ratio measures 1.00 range (0.93-1.11). Procedure Note Vazquez Rabago MD - 06/08/2023 For Patients: As a result of the Cures Act, medical imagingexams and procedure reports are released immediately into your electronicmedical record. You may view this report before your referring provider.If you have questions, please contact your health care provider. INDICATION: Third trimester scan, evaluate growth. COMPARISON: 02/25/2023 TECHNIQUE: Real time gonzales scale imaging of the fetus was performed. FINDINGS: Sonographic imaging demonstrates a single living intrauterine gestation.Fetus demonstrates a regular cardiac rate of 139 beats per minute. Fetushas a vertex position. The placenta lies left fundal without evidence ofplacenta previa. Amniotic fluid volume appears normal and there is asingle deepest vertical pocket: 5.6 cm. The estimated weight [id number] which lies at the 87th %. On the prior OB ultrasound exam dated104/28/2022 the estimated weight was at the 71st%. The fetalbiometric indices all lie within normal range. The HC/AC ratio measures1.00 range (0.93- 1.11). IMPRESSION: Sonographic gestational age 37 weeks 5 days and sonographic due date06/24/2023. Sonographic age 12 days ahead of the clinical age. Estimated weight 87th percentile. Abdominal circumference 93rdpercentile. Dictated by Vazquez Rabago MD @ 06/08/2023 2:11:44 PM (Electronically Signed) Courtney Starr MD US * ANTI HIV 1/2 (11/27/2022 5:03 PM CDT) HIV-1/HIV-2 SCREEN Non-Reacti ve Non-Reacti ve 11/30/2022 1:50 PM CDT [facility] Comment:HIV-1 p24 and HIV-1/ HIV-2 Ab Not Detected. Blood BLOOD SPECIMEN / Unknown Venipuncture / Unknown 11/27/2022 5:03 PM CDT 11/27/2022 5:03 PM CDT Courtney Starr MD SEND OUTS Performing Organization Address [facility] Co de Phone Number [facility] [address] [place] [address], * HPV HIGH RISK (06/25/2022 12:13 PM CDT) TYPE 16 Negative Negative 06/30/2022 5:22 PM CDT [facility] TYPE 18 Negative Negative 06/30/2022 5:22 PM CDT [facility] OTHER HIGH RISK TYPES Negative Negative 06/30/2022 5:22 PM CDT [facility] Other (Cervical) Non-Blood / Unknown 06/25/2022 12:13 PM CDT 06/26/2022 2:43 PM CDT Narrative [facility] - 06/30/2022 5:22 PM CDT HPV types 16, 18, 31, 33, 35, 39, 45, 51, 52, 56, 58, 59, 66 and 68 DNA were undetectable or below the pre-set threshold. Methodology: Luis Isabella 4800 HPV Test Courtney Starr MD MICROBIOLOGY Performing Organization Address City/[facility]/ZIP Co de Phone Number [facility] [address] [place] [address], * LC HCV ANTIBODY RFX TO QUANT PCR (06/12/2022 3:55 PM CDT) HCV Ab Non Reactive Non Reactive 06/16/2022 2:07 AM CDT [facility]) Blood BLOOD SPECIMEN / Unknown Butterfly / Unknown 06/12/2022 3:55 PM CDT 06/12/2022 3:55 PM CDT Narrative [facility] ([facility]) - 06/16/2022 2:07 AM CDT Performed at: ??[address] ??[id number] Fruit Dumper: Alverto Brizuela MD, Phone: ??[phone] Courtney Starr MD LABORATORY [facility] ([facility]) [address] [place] [address] from Last 3 Months or Most Recently Relevant to Health Maintenance Advance Directives * Full Code (Latest Code Status on File) Date Activated Date Inactivated Comments 05/27/2012 7:47 AM 05/27/2012 7:51 AM Care Teams Farm Helper Relationship Specialty Start Date End Date Courtney Starr MD [facility] [id number] PCP - General Family Practice 06/22/22
[2023-06-30] MEDS: LACTATED RINGERS 1000 ML 1,000 ML 900 ML IV (06:10)
[2023-06-30 06:19] LABS: Hemoglobin* 11.9 gm/dL (12.0-16.0)
[2023-06-30] MEDS: LACTATED RINGERS 1000 ML 1,000 ML 100 ML IV (07:43)
[2023-06-30] MEDS: CEFAZOLIN 1 GM inj 3 GM IVP (07:43)
--- NOTE | 2023-06-30 07:53 | W.ANESCHARGE ---
Anesthesia Charges Start Date/Time Anesthesia Start Date: 06/30/23 Anesthesia Start Time: 07:22 Stop Date/Time Anesthesia Stop Date: 06/30/23 Anesthesia Stop Time: 09:31
[2023-06-30] MEDS: KETOROLAC 30 MG/ML inj IVP ×3 (09:00→21:01)
--- NOTE | 2023-06-30 09:03 | W.ANESCHARGE ---
Anesthesia Charges Start Date/Time Anesthesia Start Date: 06/30/23 Anesthesia Start Time: 07:22 Stop Date/Time Anesthesia Stop Date: 06/30/23 Anesthesia Stop Time: 09:31
--- NOTE | 2023-06-30 10:23 | W.PM.H&PU_ITS ---
History & Physical Update History & Physical Update H&P Reviewed and patient assessed: No changes noted H&P Updates: Delayed documentation due to patient care. Patient seen at 0700. Maru is a 33yo seen at 39 weeks for repeat . is complicated by AMA, asthma, GERD and class 3 obesity. She is an established patient of [facility]. Please see my consult note from 06/08/23 for complete details. Patient is feeling well today with no acute concerns. Denies regular/painful uterine contractions, vaginal bleeding or leaking of fluids. Endorses active movement. NST reactive with baseline 130bpm, moderate variability, two 15x15 accels noted. No decelerations. Fetus palpates vertex by amauri's. Placenta is left fundal. Pre-op labs reviewed. We reviewed plan to proceed with repeat delivery and proceed as indicated. Patient affirmed her desire to not have surgical sterilization, she does plan to have Nexplanon placed prior to dismissal. We reviewed the risk of surgery including bleeding, infection, damage to surrounding structures and [facility] complications of surgery/anesthesia including VTE, heart attack, stroke. All questions answered. Written consent was re-signed.
--- NOTE | 2023-06-30 10:26 | PM.OBPRCCS ---
Procedure Time Seen by Provider: 08:45 Date of procedure: 06/30/23 Pre-op diagnosis: Prior Delivery, 39 weeks gestation Post-op diagnosis: same Procedure Done: only Will [facility] bill your pro fee for this procedure?: Yes Blood Loss Measurement Type: QBL (328mL) Bakri Used: No IV fluids (mL): 1,000 Urine Output (mL): 75 Surgeon: Javan Lee MD Computer Networking Instructor Adjunct: Ciara Baez MD Anesthesia Type: Spinal Findings: Significant diastasis recti Adhesive disease between the bladder reflection to lower uterine segment and laterally to rectus abdominis muscles Thin omental adhesions to anterior abdominal wall Unremarkable uterus, bilateral fallopian tubes and ovaries Procedure Name: Repeat delivery, lysis of adhesions Procedure Description: Patient was taken to the operating room with IV running. She received 3g cefazolin in preoperative prophylaxis. Spinal anesthesia was administered. Odom catheter was inserted. Traxi retractor and tape was utilize to elevate the panniculus. She was prepped and draped in the usual sterile fashion. Anesthesia was tested and found to be adequate. A low-transverse skin incision was made with a scalpel and carried through to the underlying layer of fascia with the scalpel. The subcutaneous fat was dissected off the underlying fascia with Bovie and blunt dissection. The fascia was nicked in the midline with a scalpel, and this incision was extended laterally with scissors. The fascia was elevated superiorly, where the rectus muscles were noted to be widely in the midline consistent with diastasis recti. The muscle was dissected off the fascia with a combination of sharp and blunt dissection, where the peritoneum was entered. Thin adhesion between the omentum and anterior abdominal wall was noted, taken down with electrocautery. The bladder was noted to be advanced along the entire lower uterine segment, with adhesions laterally to the peritoneum and rectus abdominis muscles. The inferior fascia was elevated and underlying muscle was dissected off with a combination of sharp and blunt dissection. We then started to address the intraabdominal adhesions. Making care to avoid the bladder, adhesions between the lateral bladder margins, peritoneum and anterior abdominal wall were inspected and transected sharply after ensuring clear tissue planes. Superiorly, the peritoneum was widened laterally with Bovie cautery. With the bladder adhesions fully taken down, we subsequently utilized lateral tension to extend peritoneal opening. Brayan O retractor was inserted and tightened down, providing excellent visualization of the lower uterine segment. A bladder flap was created with a combination of sharp and blunt dissection. Low-transverse uterine incision was made with a scalpel. Incision was widened bluntly. The 's head was grasped through the hysterotomy in OT position and elevated to the hysterotomy. The remainder of the body delivered without incident with the help of fundal pressure. No nuchal cord was noted. Cord was clamped and cut after 30 seconds. was handed off to attending nurses. The placenta was delivered with gentle traction on the cord. The uterus was cleaned of all clots and debris with the dry lap pad. Inferior extension of the hysterotomy was noted, with the inferior margin noted to be above bladder reflection. Distal corner was grasped with ring forceps. Hysterotomy closure was started at the inferior extension, in a running, locking fashion with 0 vicryl. Once at the level of the hysterotomy, this stitch was tied. We then proceed with right to left hysterotomy closure in the usual running, locked fashion with 0 vicryl. A second layer of the same suture was used in imbricating fashion to obtain hemostasis. Care was made to reinforce the site where the extension met hysterotomy given tissue friability at this site, where an additional figure of eight suture was applied with 0 vicryl. Excellent uterine tone was noted. The adnexa were examined and noted to be normal in appearance. The cul-de-sac and gutters were cleansed with dampened laparotomy sponge, removing any further clots and debris. The Brayna O retractor was removed. The hysterotomy was reexamined, where small volume oozing was noted where a figure of eight suture with 0 vicryl was applied at the right hysterotomy margin. Excellent hemostasis was noted. Marina was applied across the hysterotomy. The rectus muscles were examined and found to be hemostatic. The fascia was reapproximated with looped 0 PDS in a running fashion. Subcutaneous fat was irrigated and Bovie used on oozing vessels. The subcutaneous fat was reapproximated with 2-0 vicryl suture in a continuous fashion in two layers due to tissue depth. The skin was closed with a subcuticular stitch of 3-0 monocryl. A silver dressing was applied. Patient tolerated procedure well was taken to recovery area in stable condition. Surgical debrief was completed. I additionally reviewed intraoperative findings with Maru and her . I noted significant adhesive disease that made surgery more technically challenging. She intends to utilize nexplanon for contraception. details: - Liveborn male fetus - weight: 3875g - APGARs were 8 and 8 at 1 and 5 minutes respectively Pathology: none sent Surgery Debrief Performed: Yes Condition: stable Disposition: floor total score - 1 minute: 8 total score - 5 minute: 8
--- NOTE | 2023-06-30 10:53 | P.NB_ITS ---
Nerve Block Nerve Block Time Seen by Provider: 09:22 Date Seen: 06/30/23 Type of block requested by surgeon for post-operative analgesia: TAP Side: bilateral Time out performed: Yes Verification of patient name: Yes Verification of date of : Yes Site marking: site marked Name of person performing procedure: Sixto Continuous monitoring Was continuous monitoring of O2 sat, B/P, youth nutritional monitor, recorded every 15 minutes?: Yes Procedure Checklist: sterile prep, needles and gloves Ultrasound guided. Images saved: Yes Medications given in 5ml increments after negative aspiration: Marcaine %: 0.25 mL: 30 Needle gauge: 20 and Exparel mL: 10 Patient tolerated procedure well: Yes Additional comments: Needle noted between internal oblique and transversus abdominus. Local spread visualized Block Charges Block Charge (with Pro Fee): TAP Bilateral Use of Ultrasound Machine for Block: Yes- US Guidance/pain block
[2023-06-30] MEDS: ACETAMINOPHEN 500 MG TABLET 1000 MG PO (18:49)
[2023-07-01] VITALS (12 sets, daily range): BP systolic 109–122; BP diastolic 66–78; PULSE 78–97; RESP 16–18; TEMP 36.6–36.7; O2SAT 96–99
[2023-07-01] MEDS: ACETAMINOPHEN 500 MG TABLET 1000 MG PO ×4 (00:19→23:18)
[2023-07-01] MEDS: ENOXAPARIN 40 MG/0.4 ML INJ SUBCUT ×2 (00:19→13:28)
[2023-07-01] MEDS: KETOROLAC 30 MG/ML inj IVP ×3 (03:40→15:24)
[2023-07-01 06:45] LABS: Hemoglobin* 11.1 gm/dL (12.0-16.0)
--- NOTE | 2023-07-01 09:00 | PM.OBPNVD1 ---
OB - PN:Subj Subjective Date Seen: 07/01/23 Narrative: Maru is a 33 y.o. who was admitted to [facility] for repeat c/s. ?She had an uncomplicated .?The patient feels well. ?The pain is well controlled with current medications. ?She has no new complaints. ?She is breast feeding and reports things are going well.? the patient has done well.? Vitals have been stable.? She has remained afebrile.? Has a good appetite, is tolerating a general diet. ?She is voiding without difficulty.? She is passing gas and has not had a bowel movement.? She is ambulating and denies any dizziness.? Has Small amount of rubra lochia. She desires nexplanon for prevention. OB - PN: Obj Exam Physical Exam: Vital signs: Temp Pulse Resp BP Pulse Ox O2 Del Method 98.1 F 79 18 122/78 99 Room Air 07/01/23 03:45 07/01/23 08:15 07/01/23 08:15 07/01/23 08:15 07/01/23 08:15 07/01/23 08:15 Narrative: GENERAL APPEARANCE:? normal affect, alert, no distress MOOD:? appropriate CHEST:? clear to auscultation HEART:? regular rate and rhythm ABDOMEN:? soft, non-tender the uterine fundus is at Umbilicus, Midline and is appropriate for the stage of recovery. LOCHIA: Scant EXTREMITIES:? normal and +1 edema INCISION: Dressing in place; clean, dry, and intact Urinary Catheter Management: Odom: Cath placed during this visit: yes, but has since been removed by the nurse Reason for continuing: decision to DC catheter Insertion date: 06/30/23 Insertion time: 07:45 Removal date: 06/30/23 Removal time: 16:45 OB - PN: Obj Data Labs Labs: Laboratory Results - last 24 hr 07/01/23 06:25 Hgb 11.1 L OB - PN: A/P Delivery Assessment and Plan (1) care and examination immediately after delivery: Status: Acute (2) Lactating mother: Status: Acute (3) Status post delivery: Status: Acute Plan day: 1 Plan: routine care Comments: Routine post-operative care. Lactating mother. May see if desired. Hgb 11.1. Anticipate discharge on 07/01 or 07/02.
[2023-07-01] MEDS: DOCUSATE SODIUM 100 MG CAPSULE PO ×2 (09:14→21:47)
[2023-07-01] MEDS: SIMETHICONE 80 MG TAB.CHEW PO (20:19)
[2023-07-01] MEDS: IBUPROFEN 600 MG TABLET PO (21:41)
[2023-07-02] MEDS: ENOXAPARIN 40 MG/0.4 ML INJ SUBCUT (00:10)
[2023-07-02] MEDS: IBUPROFEN 600 MG TABLET PO ×2 (03:45→09:28)
[2023-07-02] MEDS: DOCUSATE SODIUM 100 MG CAPSULE PO (08:19)
[2023-07-02] MEDS: ACETAMINOPHEN 500 MG TABLET 1000 MG PO (08:19)
--- NOTE | 2023-07-02 08:39 | P.DS_ITS ---
DS: Providers Provider Date Seen: 07/02/23 Date of admission: 06/30/23 05:08 Primary care physician: Radha Starr MD Admitting Clinician: Maria Fernanda Lee MD Attending Physician on discharge: Maria Fernanda Lee MD Date of Discharge: 07/02/23 DS: Diagnosis Discharge Diagnosis (1) Status post delivery: Status: Acute (2) Lactating mother: Status: Acute (3) Obesity: Status: Chronic Exam Narrative: Exam Narrative: GENERAL APPEARANCE:? normal affect, alert, no distress? MOOD:? appropriate? CHEST:? clear to auscultation and percussion? HEART:? regular rate and rhythm? ABDOMEN:? soft, non-tender the uterine fundus is U/2 and is appropriate for the stage of recovery.?Incision dressing is clean, dry and intact without drainage visualized. EXTREMITIES:? normal and no edema? Const: Vital Signs, click to edit/add: Vital Signs - 24 hr 07/01/23 15:50 07/01/23 23:10 Temperature 97.9 F 98.0 F Pulse Rate [Pulse Oximeter] 85 84 Respiratory Rate 16 16 Blood Pressure [Ri ght Arm] 109/66 115/74 Pulse Oximetry 96 Oxygen Delivery Me thod Room Air Documenting provider has reviewed patient's vital signs: yes OB - DS: Summary Hospital Course Hospital Course: The patient is a 33 year old G 4 P 3 at 39.0 weeks gestation that was admitted to the Center on 06/30/23 for repeat delivery. She had an uncomplicated delivery. She delivered a viable male . She is breast feeding and feels it is going well. the patient has done well. Her pain is well controlled with current medications.?She has not needed narcotic pain medication in the hospital but would like a small amount for concerns about an increase in pain after discharge. She has no new complaints.? Urinary output is adequate and she is voiding without difficulty.? Has a good appetite, is tolerating a general diet, is passing flatus, and has not had a bowel movement.? Has scant amount of rubra lochia.? She is ambulating well.?She is request Nexplanon insertion immediately. It will be placed after discharge as a clinic patient. Peripartum Data delivery method: Repeat Section Procedures: Procedures Operation Date: 05/01/24 07:15 Actual Procedure Side Surgeon p Repeat Section Maria Fernanda Lee MD complications: none [place] Gender: Male Infant Discharge Plan: Home Status at Discharge Functional status at discharge: independent ambulation Overall status at discharge: patient is progressing back to baseline Time Spent with Patient Time attestation: Total time spent providing and/or coordinating discharge services: Discharge Plan Discharge Disposition: Home, Self-Care Date of Admission: 06/30/23 05:08 Attending Provider on Discharge: Milvia Mera Primary Care Provider: Radha Starr Condition: Stable Anticipated Discharge Date/Time: 07/02/23 12:00 Discharge Medications: New docusate sodium 100 mg Capsule 100 mg PO BID Qty: 100 0RF Rx Instructions: Take 1-2 tablets daily as needed for constipation. ibuprofen 600 mg Tablet 600 mg PO Q6H PRN (Reason: Pain) Qty: 100 0RF oxycodone 5 mg Tablet 5 - 10 mg PO Q4H PRN (Reason: Pain) Qty: 7 0RF Continued albuterol sulfate [Ventolin HFA] 90 mcg/actuation HFA aerosol inhaler 2 puff inhalation Q4H fluticasone propionate 50 mcg/actuation spray,suspension 1 spray intranasal BID [id number] 3-fat com #1 27-1-300 mg capsule PO loratadine [Claritin] 10 mg tablet 10 mg PO QDAY Fiber Gummies 2 gram tablet,chewable PO Discontinued aspirin [Adult Low Dose Aspirin] 81 mg tablet,delayed release (DR/EC) 81 mg PO QDAY No Action Nexplanon 68 mg implant 68 mg subdermal ONCE Qty: 1 0RF Discharge Orders: Discharge Order (Routine); Ordered 07/02/23 Ordered By: Milvia Mera Patient Education: OB /Breast Feeding Additional Instructions: Discharge instructions were reviewed with the patient including signs and symptoms of infection and home going medications? ?? Activity restrictions:? Lifting Restrictions: 20 pounds for 6 weeks? No high-impact or core exercises for 6 weeks.?? No not submerge incision under water X 2 weeks?? Nothing vaginally for 6 weeks: no tampons or intercourse? Do not drive while taking narcotic pain medication(s)? Off Work or School for 8 weeks? ?? Symptoms to report to doctor:? -Bleeding that saturates more than one pad per hour? -Passing clots larger than the size of a golf ball? -Pain not relieved by prescribed medication? -Fever above 100.4 degrees Fahrenheit? -A foul vaginal odor? -Difficulty in emotions, mood and functions? -Thoughts of hurting yourself and/or ? -Painful, reddened area in your breast? -Any drainage, redness or tenderness in your IV/epidural site? -Severe headache that doesn't improve after taking medications? -Changes in vision, including temporary loss of vision, blurred vision, and/or light sensitivity? -Upper abdominal pain (usually under ribs on the right side)? -Decrease in urination or painful, frequent urinating? -Chest pain? -Shortness of breath? -Tenderness or pain with redness and/swelling in the calf(s) of your leg? Follow up visits:?? 1. 1 week visit:? incision check and dressing removal.? 2. 2-week visit: discuss infant feeding/care concerns, review control options and screen for anxiety/depression.? 3. 6-week visit for an annual exam.? ?? consultation services are available to all mothers and babies for the first year after delivery.? To make an appointment, please call [phone].? Follow Up Appointments: [facility] [Provider Group] Radha Starr MD [Primary Care Provider] - Forms: [facility] Medical Info Instructions
[2023-07-02 09:13] VITALS: BP 118/70; PULSE 84; RESP 16; TEMP 36.7
[2023-07-02] MEDS: OXYCODONE 5 MG TABLET PO (10:28)
== END 2023-07-02 12:56 | disposition home or self-care (01) | DRG 788 ==
PROVIDERS: Admitting Provider Obstetrics & Gynecology; PCP Family Medicine; Visit Provider Obstetrics & Gynecology
PROC: 10D00Z1 Extraction of Products of Conception, Low, Open Approach (ICD-10-PCS; CPT 59514; principal; 2023-06-30 07:15)
DX: O34.211 Maternal care for low transverse scar from previous cesarean delivery (principal); G89.18 Other acute postprocedural pain; J45.909 Unspecified asthma, uncomplicated; K21.9 Gastro-esophageal reflux disease without esophagitis; O99.214 Obesity complicating childbirth; E66.9 Obesity, unspecified; O99.892 Other specified diseases and conditions complicating childbirth; N73.6 Female pelvic peritoneal adhesions (postinfective); O71.89 Other specified obstetric trauma; Z3A.39 39 weeks gestation of pregnancy; Z37.0 Single live birth
CPT/HCPCS: 01961; 36415; 64488; 76942; 85018; 86850; 86900; 86901; A9270; C9290; J0665; J0690; J1100; J1650; J1885; J2250; J2274; J2371; J2405; J2590; J3010; J3490; J7120

== ENCOUNTER 2023-12-14 15:12 | Outpatient (CLI) | payer OTHER, MEDICAID, SELFPAY ==
--- OUTSIDE RECORDS SUMMARY | 2023-12-30 14:18 | XMS_ITS | Clinical Summary ---
Author Organization [email or web address] [facility] [employer] [facility] Address [place], [place] [address] Care Team Providers Care Research Recruiter Name Role Phone Radha Starr MD Primary Care Provider Allergies No known active allergies Medications Medication Sig Dispensed Refills Start Date End Date Status no115/iron/folic acid ( 19 ORAL) Take by mouth. Active albuterol (PROVENTIL) 0.083 % neb solutionIndications: Asthma, unspecified asthma severity, unspecified whether complicated, unspecified whether persistent Inhale 3 mL (2.5 mg) via a nebulizer every 4 hours if needed for Wheezing. 75 mL 5 11/27/2022 Active fluticasone (50 mcg per actuation) nasal solution (FLONASE)Indications :Environmental allergies Inhale 2 Sprays to both nostrils once daily. 16 g 11 11/27/2022 Active Breast Pump PurchaseIndications: Care and examination of lactating mother Electric breast pump for home use. Gestational age at delivery: 39 weeks. Reason for need: return to work. Length of need: 99 months (lifetime use) 1 Each 03/18/2023 Active polydextrose 1.5 gram chew Chew by mouth. Active Graduated Compression StockingsIndications :Swelling of lower extremity during in third trimester For personal use. Length: calf Strength: 20-30 mmHg 2 Packet 05/13/2023 Active albuterol HFA (Ventolin HFA) 90 mcg/actuation inhalerIndications:M ild intermittent asthma without complication Inhale 2 Puffs by mouth every 4 hours if needed for Shortness Of Breath. 36 g 5 06/09/2023 Active vitamin D3-folic acid 250 mcg (10,000 unit)-1 mg tab Take by mouth once daily. Active Active Problems Problem Noted Date Diagnosed Date Advanced maternal age in multigravida, second tr imester 02/25/2023 Maternal morbid obesity in second trimester, ant epartum 02/25/2023 [facility], Supervision of high-risk 01/26/20 23 Overview (02/16/2023): Maru Escalante : 1990 [facility] ULTRASOUND/TESTING PATIENT [facility] CONSULT ON Support person name: Hospital Wellness Coordinator: No ULTRASOUND TYPE: L2 REASON FOR VISIT: [...] BRITT 07/06/2023. (PCP) ECHO: REFERRING PHYSICIAN/PHONE/LAST UPDATE: Radha Starr MD, [facility] approves scheduling of recommended ultrasounds/testing: Yes SPECIALISTS/CONSULTS: [...] CARE: Original and updated POC #4 12/15/2022 Overview (06/16/2023): Estimated Date of Delivery: 07/06/2023 based on [...] Pap smear for cervical cancer screening 07/31/19 23 Overview (07/30/2022): 05/2022 NIL/HPV negative. Plan: Pap/HPV due 05/2027 Vitamin D deficiency 04/22/2010 Hypothyroidism 04/22/2010 Allergic rhinitis, cause unspecified 05/04/2006 Overview (05/04/2006): animal dander pollens, dust & mold Unspecified asthma(493.90) 05/04/2006 Other acne 05/04/2006 Resolved Problems Problem Noted Date Diagnosed Date Resolved Date #3 06/12/2022 12/15/2022 Overview (12/15/2022): SAB May 2022 OB History Para Term [...] Encounters Date Type Department Care Team Description 10/06/2023 10:45 AM CDT Ancillary Procedure [facility] [address] [facility] [place] [address] 10/06/2023 10:00 AM CDT Office Visit [facility] [address] [place] [address] Catherine Harper MD Fall (Fell coming out of tub hurt rt elbow pain now is 4/10 and at its worse it is a 10/10 x 2 days ago ) 10/06/2023 Travel from Last 3 Months Immunizations Name Administration Dates Next Due AMB Influenza, IIV3 (Age >=3 years) Preserve Free (Flu Clinic Only) 12/06/2012 AMB Influenza, IIV3 (Age >=3 years)(Flu Clinic Only) 11/30/2011,12/15/2010,12/23/2007 AMB Influenza, IIV4 PF (=>6 mos Flulaval,Fluzone Fluarix)(Flu Clinic Only) 11/29/2018,12/14/2015,12/13/2013 COVID-19 VACCINE SPIKEVAX (M ODERNA 50MCG/0.5ML) 12YO+ PFS 01/20/2023 DTaP 05/09/1993, 2,1988,1988,1988 HIB HbOC (HibTITER) [...] PHQ-2 Answer Date Recorded PHQ-2 TOTAL SCORE 0 08/12/2023 Social Connections Answer Date Recorded Frequency of [...] Housing in the Last Year 1 07/08/2021 Sex and Gender Information Value Date Recorded Sex Assigned at Not on file Gender Identity Not on file Sexual Orientation Not on file Obstetrics History Para Term AB IAB SAB Ectopic Multiple Livin g Live Births 4 3 3 0 1 0 1 0 0 3 3 Date Outcome GA Total Labor Labor/2nd/3rd Weight Sex Type Anes PTL Jose A1 A5 Name Clin 2007 Term 40w 3d 10h 00m/ 3.03 kg (6 lb 11 oz) M C-Sect ion Livin g Tommy Melan ie Lujan OB/GY N Delivery Location:[place] Comments:emergency c- section 2011 Term 37w 0d F C-Sect ion Livin g Aleisha 2022 SAB F SPONTA NEOUS Comments:System Genera lobito. Please review and update details. 2023 Term 39w 1d 3.88 kg (8 lb 8.7 oz) M CS-LTr anv N Livin g 8 8 Iraj Complications:None Last Filed Vital Signs Vital Sign Reading Time Taken Comments Blood Pressure 117/78 10/06/2023 10:08 AM CDT Pulse 79 10/06/2023 10:08 AM CDT Temperature 36.6 ??C (97.8 ??F) 02/17/2023 9:50 AM CS T Respiratory Rate 14 12/01/2020 12:18 PM CDT Oxygen Saturation 96% 10/06/2023 10:08 AM CDT Inhaled Oxygen Concentration - - Weight 128.8 kg (284 lb) 10/06/2023 10:08 AM CDT Height 158.8 cm (5' 2.5) 08/12/2023 8:44 AM CDT Body Mass Index 51.12 08/12/2023 8:44 AM CDT Plan of Treatment Health Maintenance Due Date Last Done Comments COVID-19 vaccine series ( season) 2023 01/20/2023, 07/18/2020, 06/20/2020 Influenza for age 9-49 10/31/2023 , 12/31/2021, 12/16/2020, Additional history exists BMI (ht and wt on same day) for age 18+ 08/11/2024 08/12/2023, 11/27/2022, 06/12/2022, Additional history exists Depression screening for age 12+ 08/11/2024 08/12/2023, 06/25/2022, 04/05/2019, Additional history exists Pap test for age 21-65 06/26/2027 , 06/25/2022, 11/10/2017, Additional history exists Tetanus booster 04/15/2033 04/15/2023, 1006/2021, 09/10/2009, Additional history exists Hepatitis C screening for age 18-79 Completed 06/12/2022 HIV for age 15-65 Completed 11/27/2022, , 09/30/2010, Additional history exists Tdap Completed 04/15/2023, 100 06/2021, 09/10/2009 Pneumococcal series for age 6-64 Aged Out No longer eligible based on patient's age to complete this topic Procedures Procedure Name Priority Date/Time Associated Diagnosis Comments XR ELBOW 3 VIEWS RIGHT Routine 10/06/2023 10:36 AM CDT Elbow injury, right, initial encounter ANTI HIV 1/2 Routine 11/27/2022 5:03 PM CDT Encounter for supervision of other normal in first trimester HPV HIGH RISK Routine 06/25/2022 12:13 PM CDT Screening for cervical cancer LC HCV ANTIBODY RFX TO QUANT PCR Routine 06/12/2022 3:55 PM CDT Encounter for supervision of other normal in first trimester from Last 3 Months or Most Recently Relevant to Health Maintenance Results * XR ELBOW 3 VIEWS RIGHT (10/06/2023 10:36 AM CDT) Anatomical Region Laterality Modality ELBOW R Computed Radiogr aphy 10/07/2023 2:58 PM CDT Impressions 10/07/2023 2:58 PM CDT 1. No acute osseous injuries or abnormalities are noted. Dictated by: Misael Dave MD @ 10/07/2023 14:58:39 (Electronically Signed) Narrative 10/07/2023 2:58 PM CDT For Patients: ??As a result of the Cures Act, medical imaging exams and procedure reports are released immediately into your electronic medical record. ??You may view this report before your referring provider. ??If you have questions, please contact your health care provider. INDICATION: Elbow injury, right TECHNIQUE: Elbow radiograph 3 views right COMPARISON: None FINDINGS: Bone: No acute fractures or aggressive bone lesions are identified. Joint: The elbow joint is unremarkable. No significant displacement of the anterior or posterior fat pads noted to suggest an effusion. Soft tissue: Unremarkable. No radiopaque foreign bodies are seen. Procedure Note Misael Dave MD - 10/07/2023 For Patients: As a result of the Cures Act, medical imagingexams and procedure reports are released immediately into your electronicmedical record. You may view this report before your referring provider.If you have questions, please contact your health care provider. INDICATION: Elbow injury, right TECHNIQUE: Elbow radiograph 3 views right COMPARISON: None FINDINGS: Bone: No acute fractures or aggressive bone lesions are identified. Joint: The elbow joint is unremarkable. No significant displacement of theanterior or posterior fat pads noted to suggest an effusion. Soft tissue: Unremarkable. No radiopaque foreign bodies are seen. IMPRESSION: 1. No acute osseous injuries or abnormalities are noted. Dictated by: Misael Dave MD @ 10/07/2023 14:58:39 (Electronically Signed) Catherine Harper MD GENERAL IMAGING * ANTI HIV 1/2 (11/27/2022 5:03 PM CDT) [facility] HIV-1/HIV-2 SCREEN Non-Reacti ve Non-Reacti ve 11/30/2022 1:[address] [facility] Comment:HIV-1 p24 and HIV-1/ HIV-2 Ab Not Detected. Blood BLOOD SPECIMEN / Unknown Venipuncture / Unknown 11/27/2022 5:03 PM CDT 11/27/2022 5:03 PM CDT Radha Starr MD SEND OUTS [facility] [address] [place], [place] [address] * HPV HIGH RISK (06/25/2022 12:13 PM CDT) Pathologist [facility] TYPE 16 Negative Negative 06/30/2022 5:[address] [facility] TYPE 18 Negative Negative 06/30/2022 5:[address] [facility] OTHER HIGH RISK TYPES Negative Negative 06/30/2022 5:[address] [facility] Other (Cervical) Non-Blood / Unknown 06/25/2022 12:13 PM CDT 06/26/2022 2:43 PM CDT Narrative [facility] - 06/30/2022 5:22 PM CDT HPV types 16, 18, 31, 33, 35, 39, 45, 51, 52, 56, 58, 59, 66 and 68 DNA were undetectable or below the pre-set threshold. Methodology: Luis Isabella 4800 HPV Test Radha Starr MD MICROBIOLOGY [facility] [address] [place] [address], [place] * LC HCV ANTIBODY RFX TO QUANT PCR (06/12/2022 3:55 PM CDT) HCV Ab Non Reactive Non Reactive 06/16/2022 2:07 AM CDT [facility] ([facility]) Blood BLOOD SPECIMEN / Unknown Butterfly / Unknown 06/12/2022 3:55 PM CDT 06/12/2022 3:55 PM CDT Narrative [facility] ([facility]) - 06/16/2022 2:07 AM CDT Performed at: ??[address] ??[id number] Head Rose Grower: Alverto Brizuela MD, Phone: ??[phone] Radha tSarr MD LABORATORY Performing Organization Address City/[facility] Co de Phone Number [facility] ([facility] [address] [place] [address] from Last 3 Months or Most Recently Relevant to Health Maintenance Advance Directives * Full Code (Latest Code Status on File) Date Activated Date Inactivated Comments 05/27/2012 7:47 AM 05/27/2012 7:51 AM Care Teams Research Recruiter Relationship Specialty Start Date End Date Radha Starr MD [address] [place] [address] PCP - General Family Practice 06/22/22
== END 2023-12-14 15:13 | disposition home or self-care (01) ==
PROVIDERS: PCP Family Medicine; Visit Provider Emergency Medicine Emergency Medical Services
DX: S29.9XXA Unspecified injury of thorax, initial encounter (principal); V53.6XXA Passenger in pick-up truck or van injured in collision with car, pick-up truck or van in traffic accident, initial encounter; Y92.410 Unspecified street and highway as the place of occurrence of the external cause
CPT/HCPCS: A0998